=== PATIENT | female | born 1990 | race Hispanic/Latino ===

== ENCOUNTER 2019-11-30 09:12 | Emergency (ER) | payer OTHER ==
[~2019-11-30] VITALS: Ht 154.9 cm; Wt 67.1 kg
[2019-11-30] MEDS ORDERED: IBUPROFEN 600 MG TAB PO STA (09:42)
[2019-11-30] MEDS ORDERED: ROBAXIN-750750 MG PO (10:25)
[2019-11-30] MEDS ORDERED: IBUPROFEN600 MG PO (10:26)
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
[2019-11-30 11:15] VITALS: BP 142/142
== END 2019-11-30 11:14 | disposition home or self-care (01) ==
LOC: FSED 09:12
DX: S06.0X0A Concussion without loss of consciousness, initial encounter (principal); S16.1XXA Strain of muscle, fascia and tendon at neck level, initial encounter; S80.02XA Contusion of left knee, initial encounter; V43.52XA Car driver injured in collision with other type car in traffic accident, initial encounter; Y92.488 Other paved roadways as the place of occurrence of the external cause
CPT/HCPCS: 70450; 72125; 81025; 99283